=== PATIENT | female | born 1990 | race Hispanic/Latino ===

== ENCOUNTER → 2018-06-12 | Outpatient (REF) | payer OTHER ==
[~2018-06-12] MED LIST: CLARITHROMYC500 M1 OR; DEPO SHOT; MACRODANTIN100 MG OR; NAPROSYN500 MG OR; NO HOME MEDICATION; NO HOME MEDS; ONDANSETRON4 MG PO; PRE-NATAL OR; PREVACID30 M2 OR; PREVACID30 M2 PO; PREVPAC OR; TORADOL OR; ULTRAM50 M1 OR; ULTRAM50 M1 PO; ULTRAM50 MG PO; ZITHROMAX250 MG PO; ZPAK OR; ZPAK PO
== END | disposition home or self-care (01) ==
LOC: LAB 09:06
DX: Z86.32 Personal history of gestational diabetes (principal)

== ENCOUNTER → 2018-06-13 | Outpatient (REF) | payer OTHER | END | disposition home or self-care (01) | LOC: LABSPEC 10:14 | DX: Z86.32 Personal history of gestational diabetes (principal) ==

== ENCOUNTER 2019-03-13 22:39 | Emergency (ER) | payer OTHER ==
[~2019-03-13] VITALS: Ht 160 cm; Wt 66.0 kg
[2019-03-14 00:04] VITALS: BP 139/75
[2019-03-14] MEDS ORDERED: METFORMIN500 MG PO (00:08)
[2019-03-14] MEDS ORDERED: SIMVASTATIN10 MG PO (00:09)
[2019-03-14] MEDS ORDERED: IRON45 MG PO (00:10)
== END 2019-03-13 23:55 | disposition home or self-care (01) ==
LOC: ED 22:39
DX: E11.9 Type 2 diabetes mellitus without complications (principal)

== ENCOUNTER 2019-06-01 | Emergency (ER) | payer OTHER ==
[~2019-06-01] MED LIST changes: +IRON45 MG PO; +METFORMIN500 MG PO; +SIMVASTATIN10 MG PO
[2019-06-01 23:15] LABS: URINE BILIRUBIN - DIPSTICK NEGATIVE (NEGATIVE); URINE BLOOD DIPSTICK LARGE (NEGATIVE); URINE COLOR YELLOW; URINE GLUCOSE - DIPSTICK NEGATIVE (NEGATIVE); URINE KETONE NEGATIVE (NEGATIVE); URINE LEUK ESTERASE TRACE (NEGATIVE); URINE NITRITE - DIPSTICK NEGATIVE (Negative); URINE PH 6.5 (4.5-8.0); URINE PROTEIN - DIPSTICK 30 mg/dL (NEG-TRACE); URINE SPECIFIC GRAVITY 1.025; URINE UROBILINOGEN - DIPSTICK 0.2 E.U./dL (0.2)
[2019-06-01 23:18] LABS: URINE EPITHELIAL CELLS FEW EPI/hpf (0-FEW); URINE RBC 50-100 RBC/hpf (0-5); URINE WBC 0-2 WBC/hpf (0-5)
[2019-06-01] MEDS ORDERED: BACTRIM DS1 TAB PO (23:26)
[2019-06-01] MEDS ORDERED: NAPROXEN DR500 MG PO (23:26)
== END 2019-06-02 00:05 | disposition home or self-care (01) ==
DX: N39.0 Urinary tract infection, site not specified (principal); E11.9 Type 2 diabetes mellitus without complications; Z79.84 Long term (current) use of oral hypoglycemic drugs

== ENCOUNTER 2020-05-30 01:58 | Emergency (ER) | payer OTHER ==
[~2020-05-30] VITALS: Ht 160 cm; Wt 65.0 kg
[~2020-05-30 01:58] MED LIST changes: +BACTRIM DS1 TAB PO; +NAPROXEN DR500 MG PO
[2020-05-30 02:55] LABS: IMMATURE GRANULOCYTES 0.2 % (0.0-5.0); MEAN CORPUSCULAR HGB 19.1 pG CALC (26.0-32.0); MEAN CORPUSCULAR HGB CONC 28.5 g/dL CAL (32.0-36.0); NEUT# 1.5 thou/uL (2.00-7.15); RED BLOOD COUNT 4.51 mill/uL (4.20-5.60); RED CELL DISTRI WIDTH 17.3 % (11.5-15.5)
[2020-05-30 02:57] LABS: HEMATOCRIT 30.2 % (37.0-47.0); HEMOGLOBIN 8.6 g/dl (12.0-16.0)
[2020-05-30 03:06] LABS: ANION GAP 13 (6-22 (CALC)); BUN 9 mg/dL (7-17); BUN/CREATININE RATIO 17 (12-20 (CALC)); CARBON DIOXIDE 24 mmol/l (22-30); CHLORIDE 102 mmol/l (95-108); CREATININE 0.6 mg/dL (0.5-1.0); GFR > 60 ML/MIN (>=60 (CALC)); GFR FOR AFR.AMER. > 60 ML/MIN (>=60 (CALC)); SODIUM 135 mmol/l (137-146)
[2020-05-30] MEDS ORDERED: FERR SULFATE325 MG PO (03:37)
[2020-05-30 03:44] VITALS: BP 129/85
== END 2020-05-30 03:44 | disposition home or self-care (01) ==
LOC: ED 01:58
PROVIDERS: Family Medicine
DX: U07.1 COVID-19 (principal); E11.9 Type 2 diabetes mellitus without complications; D64.9 Anemia, unspecified; E78.00 Pure hypercholesterolemia, unspecified; Z79.84 Long term (current) use of oral hypoglycemic drugs

== ENCOUNTER 2020-07-06 22:57 | Emergency (ER) | payer OTHER ==
[~2020-07-06] VITALS: Ht 149.9 cm; Wt 64.0 kg
[~2020-07-06 22:57] MED LIST changes: +FERR SULFATE325 MG PO
[2020-07-06] MEDS ORDERED: CHOLESTEROL MEDICATI (23:29)
[2020-07-06 23:54] LABS: ANION GAP 13 (6-22 (CALC)); BUN 10 mg/dL (7-17); BUN/CREATININE RATIO 20 (12-20 (CALC)); CARBON DIOXIDE 24 mmol/l (22-30); CHLORIDE 103 mmol/l (95-108); CREATININE 0.5 mg/dL (0.5-1.0); GFR > 60 ML/MIN (>=60 (CALC)); GFR FOR AFR.AMER. > 60 ML/MIN (>=60 (CALC)); POTASSIUM 4.2 mmol/l (3.5-5.1); SODIUM 135 mmol/l (137-146)
[2020-07-07 00:15] VITALS: BP 143/86
== END 2020-07-07 00:22 | disposition home or self-care (01) ==
LOC: ED 22:57
PROVIDERS: Family Medicine
DX: E11.649 Type 2 diabetes mellitus with hypoglycemia without coma (principal); Z79.84 Long term (current) use of oral hypoglycemic drugs

== ENCOUNTER 2020-07-24 22:56 | Emergency (ER) | payer OTHER ==
[~2020-07-24 22:56] MED LIST changes: +CHOLESTEROL MEDICATI
[2020-07-24 23:57] LABS: HEMATOCRIT 34.2 % (37.0-47.0); IMMATURE GRANULOCYTES 0.3 % (0.0-5.0); MEAN CORPUSCULAR HGB 21.9 pG CALC (26.0-32.0); MEAN CORPUSCULAR HGB CONC 29.2 g/dL CAL (32.0-36.0); NEUT# 7.21 thou/uL (2.00-7.15); RED BLOOD COUNT 4.56 mill/uL (4.20-5.60); RED CELL DISTRI WIDTH 22.1 % (11.5-15.5)
[2020-07-25 00:04] LABS: URINE BILIRUBIN - DIPSTICK NEGATIVE (NEGATIVE); URINE BLOOD DIPSTICK NEGATIVE (NEGATIVE); URINE COLOR YELLOW; URINE GLUCOSE - DIPSTICK NEGATIVE (NEGATIVE); URINE KETONE NEGATIVE (NEGATIVE); URINE LEUK ESTERASE NEGATIVE (NEGATIVE); URINE PROTEIN - DIPSTICK NEGATIVE (NEG-TRACE); URINE UROBILINOGEN - DIPSTICK 0.2 E.U./dL (0.2)
[2020-07-25 00:05] LABS: URINE NITRITE - DIPSTICK NEGATIVE (Negative)
[2020-07-25 00:18] LABS: ALKALINE PHOSPHATASE 95 u/l (38-126); ANION GAP 13 (6-22 (CALC)); BILIRUBIN, TOTAL 0.5 mg/dL (0.0-1.4); BUN 10 mg/dL (7-17); BUN/CREATININE RATIO 20 (12-20 (CALC)); CARBON DIOXIDE 24 mmol/l (22-30); CHLORIDE 102 mmol/l (95-108); CREATININE 0.5 mg/dL (0.5-1.0); GFR > 60 ML/MIN (>=60 (CALC)); GFR FOR AFR.AMER. > 60 ML/MIN (>=60 (CALC)); POTASSIUM 4.1 mmol/l (3.5-5.1); SGOT/AST 16 u/l (14-36); SODIUM 135 mmol/l (137-146); TOTAL PROTEIN 7.4 g/dL (6.3-8.2)
[2020-07-25 00:20] LABS: ACT PARTIAL THROMBO TIME 25.6 SECONDS (20.0-32.5); PROTHROMBIN TIME 10.1 SECONDS (9.0-12.5)
[2020-07-25 00:29] LABS: MYOGLOBIN 10 ng/mL (0 - 62)
[2020-07-25 00:30] LABS: MAGNESIUM 1.7 mg/dL (1.6-2.3)
[2020-07-25 01:03] VITALS: BP 140/76
== END 2020-07-25 01:03 | disposition home or self-care (01) ==
LOC: ED 22:56
PROVIDERS: Family Medicine
DX: R42 Dizziness and giddiness (principal); E11.9 Type 2 diabetes mellitus without complications; E78.00 Pure hypercholesterolemia, unspecified; Z79.84 Long term (current) use of oral hypoglycemic drugs

== ENCOUNTER 2020-08-18 22:30 | Emergency (ER) | payer OTHER ==
[2020-08-19 00:02] LABS: HEMATOCRIT 36.8 % (37.0-47.0); HEMOGLOBIN 10.8 g/dl (12.0-16.0); IMMATURE GRANULOCYTES 0.1 % (0.0-5.0); MEAN CELL VOLUME 75.3 fL CALC (80.0-100.0); MEAN CORPUSCULAR HGB 22.1 pG CALC (26.0-32.0); MEAN CORPUSCULAR HGB CONC 29.3 g/dL CAL (32.0-36.0); NEUT# 5.63 thou/uL (2.00-7.15); RED BLOOD COUNT 4.89 mill/uL (4.20-5.60); RED CELL DISTRI WIDTH 19.7 % (11.5-15.5)
[2020-08-19 00:29] LABS: ALBUMIN 4.4 g/dL (3.2-5.0); ALKALINE PHOSPHATASE 95 u/l (38-126); ANION GAP 12 (6-22 (CALC)); BILIRUBIN, TOTAL 0.5 mg/dL (0.0-1.4); BUN 11 mg/dL (7-17); BUN/CREATININE RATIO 20 (12-20 (CALC)); CARBON DIOXIDE 25 mmol/l (22-30); CHLORIDE 104 mmol/l (95-108); CREATININE 0.6 mg/dL (0.5-1.0); GFR > 60 ML/MIN (>=60 (CALC)); GFR FOR AFR.AMER. > 60 ML/MIN (>=60 (CALC)); POTASSIUM 4.1 mmol/l (3.5-5.1); SGOT/AST 15 u/l (14-36); SODIUM 137 mmol/l (137-146); TOTAL PROTEIN 8.1 g/dL (6.3-8.2)
[2020-08-19] MEDS ORDERED: VOLTAREN75 MG PO (01:35)
[2020-08-19 02:00] VITALS: BP 148/72
== END 2020-08-19 02:07 | disposition home or self-care (01) ==
LOC: ED 22:30
PROVIDERS: Family Medicine
DX: U07.1 COVID-19 (principal); M54.2 Cervicalgia; E11.9 Type 2 diabetes mellitus without complications; Z79.84 Long term (current) use of oral hypoglycemic drugs
CPT/HCPCS: Q9967

== ENCOUNTER 2020-09-15 21:08 | Emergency (ER) | payer OTHER ==
[~2020-09-15] VITALS: Ht 149.9 cm; Wt 63.0 kg
[~2020-09-15 21:08] MED LIST changes: +VOLTAREN75 MG PO
[2020-09-15 21:46] LABS: HEMATOCRIT 37.1 % (37.0-47.0); HEMOGLOBIN 11.1 g/dl (12.0-16.0); IMMATURE GRANULOCYTES 0.4 % (0.0-5.0); MEAN CELL VOLUME 74.6 fL CALC (80.0-100.0); MEAN CORPUSCULAR HGB 22.3 pG CALC (26.0-32.0); MEAN CORPUSCULAR HGB CONC 29.9 g/dL CAL (32.0-36.0); NEUT# 6.55 thou/uL (2.00-7.15); RED BLOOD COUNT 4.97 mill/uL (4.20-5.60); RED CELL DISTRI WIDTH 17.6 % (11.5-15.5)
[2020-09-15 22:00] LABS: ALBUMIN 4.2 g/dL (3.2-5.0); ALKALINE PHOSPHATASE 94 u/l (38-126); AMYLASE 59 u/l (30-110); ANION GAP 13 (6-22 (CALC)); BUN 12 mg/dL (7-17); BUN/CREATININE RATIO 19 (12-20 (CALC)); CARBON DIOXIDE 27 mmol/l (22-30); CHLORIDE 100 mmol/l (95-108); CREATININE 0.6 mg/dL (0.5-1.0); GFR > 60 ML/MIN (>=60 (CALC)); GFR FOR AFR.AMER. > 60 ML/MIN (>=60 (CALC)); LIPASE 106 u/l (23-300); POTASSIUM 3.6 mmol/l (3.5-5.1); SGOT/AST 23 u/l (14-36); SODIUM 136 mmol/l (137-146); TOTAL PROTEIN 8.2 g/dL (6.3-8.2)
[2020-09-15 22:02] LABS: BILIRUBIN, TOTAL 0.2 mg/dL (0.0-1.4)
[2020-09-15 22:11] LABS: MYOGLOBIN 11 ng/mL (0 - 62)
[2020-09-15] MEDS ORDERED: TORADOL PO (22:26)
[2020-09-15 22:43] VITALS: BP 111/69
== END 2020-09-15 22:41 | disposition home or self-care (01) ==
LOC: ED 21:08
PROVIDERS: Family Medicine
DX: R07.89 Other chest pain (principal); E11.9 Type 2 diabetes mellitus without complications; E78.00 Pure hypercholesterolemia, unspecified; Z79.84 Long term (current) use of oral hypoglycemic drugs

== ENCOUNTER 2021-12-19 11:57 | Emergency (ER) | payer OTHER ==
[~2021-12-19] VITALS: Ht 149.9 cm; Wt 60.4 kg
[~2021-12-19 11:57] MED LIST changes: +TORADOL PO
[2021-12-19 14:31] VITALS: BP 140/79
[2021-12-19] MEDS ORDERED: METFORMIN HCL1000 MG PO (14:42)
[2021-12-19] MEDS ORDERED: JARDIANCE10 MG (14:43)
[2021-12-19] MEDS ORDERED: IRON SUPPLEMENT (14:43)
[2021-12-19 14:48] LABS: HEMATOCRIT 36.7 % (37.0-47.0); HEMOGLOBIN 10.5 g/dl (12.0-16.0); IMMATURE GRANULOCYTES 0.1 % (0.0-5.0); MEAN CORPUSCULAR HGB 19.5 pG CALC (26.0-32.0); MEAN CORPUSCULAR HGB CONC 28.6 g/dL CAL (32.0-36.0); NEUT# 5.92 thou/uL (2.00-7.15); RED BLOOD COUNT 5.39 mill/uL (4.20-5.60); RED CELL DISTRI WIDTH 20.4 % (11.5-15.5)
[2021-12-19 14:49] LABS: MEAN CELL VOLUME 68.1 fL CALC (80.0-100.0)
[2021-12-19 15:00] VITALS: BP 147/81
[2021-12-19 15:01] LABS: ALBUMIN 4.8 g/dL (3.2-5.0); ALKALINE PHOSPHATASE 112 u/l (38-126); ANION GAP 17 (6-22 (CALC)); BILIRUBIN, TOTAL 0.4 mg/dL (0.0-1.4); BUN 5 mg/dL (7-17); BUN/CREATININE RATIO 13 (12-20 (CALC)); CARBON DIOXIDE 23 mmol/l (22-30); CHLORIDE 102 mmol/l (95-108); CREATININE 0.4 mg/dL (0.5-1.0); GFR FOR AFR.AMER. > 60 ML/MIN (>=60 (CALC)); GFR OTHER RACES > 60 ML/MIN (>=60 (CALC)); POTASSIUM 3.6 mmol/l (3.5-5.1); SGOT/AST 19 u/l (14-36); SODIUM 139 mmol/l (137-146); TOTAL PROTEIN 9.3 g/dL (6.3-8.2)
[2021-12-19 15:30] VITALS: BP 135/77
[2021-12-19 16:00] VITALS: BP 144/80
[2021-12-19 16:30] VITALS: BP 135/77
[2021-12-19 17:01] VITALS: BP 120/75
== END 2021-12-19 17:17 | disposition home or self-care (01) ==
LOC: ED 11:57
PROVIDERS: Family Medicine
DX: E11.649 Type 2 diabetes mellitus with hypoglycemia without coma (principal); Z79.84 Long term (current) use of oral hypoglycemic drugs

== ENCOUNTER 2023-06-01 14:42 | Emergency (ER) | payer OTHER ==
[~2023-06-01] VITALS: Ht 149.9 cm; Wt 60.0 kg
[~2023-06-01 14:42] MED LIST changes: +IRON SUPPLEMENT; +JARDIANCE10 MG; +METFORMIN HCL1000 MG PO
[2023-06-01 16:21] LABS: BASO% 0.5 % (0-3); EOS% 1.3 % (0-8); HEMATOCRIT 39.3 % (37.0-47.0); HEMOGLOBIN 12.3 g/dl (12.0-16.0); IMMATURE GRANULOCYTES 0.1 % (0.0-5.0); LYMPH% 22.8 % (15-41); MEAN CORPUSCULAR HGB CONC 31.3 g/dL CAL (32.0-36.0); MONO% 5.4 % (2-13); NEUT# 5.86 thou/uL (2.00-7.15); NEUT% 69.9 % (42-76); RED BLOOD COUNT 4.92 mill/uL (4.20-5.60); RED CELL DISTRI WIDTH 13.2 % (11.5-15.5)
[2023-06-01 16:30] LABS: MEAN CELL VOLUME 79.9 fL CALC (80.0-100.0)
[2023-06-01 16:51] LABS: ALBUMIN 4.2 g/dL (3.2-5.0); ALKALINE PHOSPHATASE 104 u/l (38-126); ANION GAP 12 (6-22 (CALC)); BILIRUBIN, TOTAL 0.4 mg/dL (0.02-1.3); BUN 10 mg/dL (7-17); BUN/CREATININE RATIO 21 (12-20 (CALC)); CARBON DIOXIDE 26 mmol/l (22-30); CHLORIDE 102 mmol/l (95-108); CREATININE 0.5 mg/dL (0.5-1.0); GFR FOR AFR.AMER. > 60 ML/MIN (>=60 (CALC)); GFR OTHER RACES > 60 ML/MIN (>=60 (CALC)); LIPASE 108 u/l (23-300); POTASSIUM 3.8 mmol/l (3.5-5.1); SGOT/AST 26 u/l (14-36); SODIUM 135 mmol/l (137-146)
[2023-06-01] MEDS ORDERED: SODIUM CHLORIDE 0.9% 1,000 ML IV STA (20:48)
[2023-06-01] MEDS ORDERED: KETOROLAC TROMETHAMINE 30 MG/ML SDV IV ONE (20:50)
[2023-06-01 20:58] LABS: URINE BILIRUBIN - DIPSTICK Negative (NEGATIVE); URINE BLOOD DIPSTICK Small (NEGATIVE); URINE GLUCOSE - DIPSTICK >=1000 mg/dL (NEGATIVE); URINE KETONE 15 mg/dL (NEGATIVE); URINE LEUK ESTERASE Negative (NEGATIVE); URINE NITRITE - DIPSTICK Negative (Negative); URINE PROTEIN - DIPSTICK Negative (NEG-TRACE); URINE UROBILINOGEN - DIPSTICK 0.2 E.U./dL (0.2)
[2023-06-01 20:59] LABS: URINE COLOR Yellow
[2023-06-01 21:01] LABS: URINE RBC 0-2 RBC/hpf (0-5)
[2023-06-01 21:02] LABS: URINE BACTERIA FEW hpf; URINE SQUAMOUS EPITHELIAL CELL FEW EPI/hpf (0-FEW); URINE WBC 0-2 WBC/hpf (0-5)
[2023-06-01] MEDS ORDERED: MAGNESIUM CITRATE 296 ML/BTL PO ONE (22:50)
[2023-06-02] MEDS ORDERED: GLIMEPIRIDE PO ONE (00:15)
[2023-06-02 01:03] VITALS: BP 116/76
== END 2023-06-02 01:10 | disposition home or self-care (01) ==
LOC: ED 14:42
PROVIDERS: Family Medicine
DX: R10.31 Right lower quadrant pain (principal); E11.9 Type 2 diabetes mellitus without complications; E78.00 Pure hypercholesterolemia, unspecified; K21.9 Gastro-esophageal reflux disease without esophagitis; Z79.84 Long term (current) use of oral hypoglycemic drugs; Z20.822 Contact with and (suspected) exposure to COVID-19
CPT/HCPCS: Q9967

== ENCOUNTER 2023-10-03 23:15 | Emergency (ER) | payer OTHER ==
[~2023-10-03] VITALS: Ht 149.9 cm; Wt 60.3 kg
[2023-10-03 23:32] VITALS: BP 137/85
[2023-10-03] MEDS ORDERED: ASPIRIN 81 MG/TAB PO ONE (23:40)
[2023-10-03] MEDS ORDERED: KETOROLAC TROMETHAMINE 30 MG/ML SDV IV ONE (23:40)
[2023-10-03] MEDS ORDERED: ALUM & MAG HYDROX-SIMETHICONE 30 ML PO ONE (23:40)
[2023-10-03] MEDS ORDERED: LIDOCAINE VISCOUS 2% 15 ML UDC PO ONE (23:45)
[2023-10-03 23:58] LABS: BASO% 0.4 % (0-3); EOS% 1.3 % (0-8); HEMATOCRIT 35.4 % (37.0-47.0); HEMOGLOBIN 11.1 g/dl (12.0-16.0); IMMATURE GRANULOCYTES 0.1 % (0.0-5.0); LYMPH% 32.6 % (15-41); MEAN CORPUSCULAR HGB 23.4 pG CALC (26.0-32.0); MEAN CORPUSCULAR HGB CONC 31.4 g/dL CAL (32.0-36.0); NEUT# 6.06 thou/uL (2.00-7.15); NEUT% 59.6 % (42-76); RED BLOOD COUNT 4.74 mill/uL (4.20-5.60); RED CELL DISTRI WIDTH 15.6 % (11.5-15.5)
[2023-10-03 23:59] LABS: MEAN CELL VOLUME 74.7 fL CALC (80.0-100.0)
[2023-10-04] VITALS: BP 140/94
[2023-10-04 00:19] LABS: ALBUMIN 3.9 g/dL (3.2-5.0); ALKALINE PHOSPHATASE 101 u/l (38-126); ANION GAP 10 (6-22 (CALC)); BILIRUBIN, TOTAL 0.5 mg/dL (0.02-1.3); BUN 12 mg/dL (7-17); BUN/CREATININE RATIO 23 (12-20 (CALC)); CARBON DIOXIDE 21 mmol/l (22-30); CHLORIDE 108 mmol/l (95-108); CREATININE 0.5 mg/dL (0.5-1.0); ESTIMATED GFR 127 ML/MIN (>=90 (CALC)); POTASSIUM 3.9 mmol/l (3.5-5.1); SGOT/AST 23 u/l (14-36); SODIUM 135 mmol/l (137-146); TOTAL PROTEIN 7.7 g/dL (6.3-8.2)
[2023-10-04 00:30] VITALS: BP 124/80
[2023-10-04 01:00] VITALS: BP 129/83
[2023-10-04 01:09] VITALS: BP 129/83
== END 2023-10-04 01:09 | disposition home or self-care (01) ==
LOC: ED 23:15
PROVIDERS: Family Medicine
DX: R07.89 Other chest pain (principal); E11.9 Type 2 diabetes mellitus without complications; K21.9 Gastro-esophageal reflux disease without esophagitis; E78.00 Pure hypercholesterolemia, unspecified; Z79.84 Long term (current) use of oral hypoglycemic drugs

== ENCOUNTER 2023-10-29 15:39 | Emergency (ER) | payer OTHER ==
[2023-10-29] VITALS (15 sets, daily range): BP systolic 104–126; BP diastolic 62–83
[~2023-10-29] VITALS: Ht 149.9 cm; Wt 61.0 kg
[2023-10-29 16:54] LABS: BASO% 0.4 % (0-3); EOS% 1.2 % (0-8); HEMATOCRIT 36.4 % (37.0-47.0); HEMOGLOBIN 11.3 g/dl (12.0-16.0); IMMATURE GRANULOCYTES 0.1 % (0.0-5.0); LYMPH% 31.1 % (15-41); MEAN CELL VOLUME 74.6 fL CALC (80.0-100.0); MEAN CORPUSCULAR HGB 23.2 pG CALC (26.0-32.0); MONO% 6.5 % (2-13); NEUT# 6.21 thou/uL (2.00-7.15); NEUT% 60.7 % (42-76); RED BLOOD COUNT 4.88 mill/uL (4.20-5.60); RED CELL DISTRI WIDTH 15.4 % (11.5-15.5)
[2023-10-29 17:06] LABS: ALBUMIN 4.2 g/dL (3.2-5.0); ALKALINE PHOSPHATASE 94 u/l (38-126); ANION GAP 13 (6-22 (CALC)); BILIRUBIN, TOTAL 0.4 mg/dL (0.02-1.3); BUN 9 mg/dL (7-17); BUN/CREATININE RATIO 19 (12-20 (CALC)); CARBON DIOXIDE 21 mmol/l (22-30); CHLORIDE 106 mmol/l (95-108); CREATININE 0.5 mg/dL (0.5-1.0); ESTIMATED GFR 127 ML/MIN (>=90 (CALC)); POTASSIUM 3.9 mmol/l (3.5-5.1); SGOT/AST 30 u/l (14-36); SODIUM 136 mmol/l (137-146); TOTAL PROTEIN 8.2 g/dL (6.3-8.2)
[2023-10-30 00:15] VITALS: BP 112/79
== END 2023-10-30 00:15 | disposition home or self-care (01) ==
LOC: ED 15:39
PROVIDERS: Family Medicine
DX: R07.89 Other chest pain (principal); I10 Essential (primary) hypertension; E11.9 Type 2 diabetes mellitus without complications; E66.9 Obesity, unspecified; Z79.84 Long term (current) use of oral hypoglycemic drugs

== ENCOUNTER 2024-01-09 07:46 | Emergency (ER) | payer OTHER ==
[2024-01-09] VITALS (7 sets, daily range): BP systolic 110–143; BP diastolic 75–95
[~2024-01-09] VITALS: Ht 149.9 cm; Wt 60.9 kg
[2024-01-09 08:26] LABS: BASO% 0.5 % (0-3); EOS% 0.8 % (0-8); HEMATOCRIT 33.1 % (37.0-47.0); HEMOGLOBIN 10.1 g/dl (12.0-16.0); IMMATURE GRANULOCYTES 0.1 % (0.0-5.0); LYMPH% 27.9 % (15-41); MEAN CELL VOLUME 73.1 fL CALC (80.0-100.0); MEAN CORPUSCULAR HGB 22.3 pG CALC (26.0-32.0); MEAN CORPUSCULAR HGB CONC 30.5 g/dL CAL (32.0-36.0); MONO% 8.1 % (2-13); NEUT# 6.28 thou/uL (2.00-7.15); NEUT% 62.6 % (42-76); RED BLOOD COUNT 4.53 mill/uL (4.20-5.60); RED CELL DISTRI WIDTH 15.5 % (11.5-15.5)
[2024-01-09 08:35] LABS: ALBUMIN 4.1 g/dL (3.2-5.0); ALKALINE PHOSPHATASE 89 u/l (38-126); ANION GAP 10 (6-22 (CALC)); BILIRUBIN, TOTAL 0.4 mg/dL (0.02-1.3); BUN 8 mg/dL (7-17); BUN/CREATININE RATIO 16 (12-20 (CALC)); CARBON DIOXIDE 21 mmol/l (22-30); CHLORIDE 112 mmol/l (95-108); CREATININE 0.5 mg/dL (0.5-1.0); ESTIMATED GFR 127 ML/MIN (>=90 (CALC)); POTASSIUM 3.5 mmol/l (3.5-5.1); SGOT/AST 26 u/l (14-36); SODIUM 140 mmol/l (137-146); TOTAL PROTEIN 7.7 g/dL (6.3-8.2)
== END 2024-01-09 09:12 | disposition home or self-care (01) ==
LOC: ED 07:46
PROVIDERS: Emergency Medicine
DX: R00.2 Palpitations (principal); D64.9 Anemia, unspecified; I10 Essential (primary) hypertension; E11.9 Type 2 diabetes mellitus without complications; F41.9 Anxiety disorder, unspecified; Z79.84 Long term (current) use of oral hypoglycemic drugs